=== PATIENT | male | born 1955 | race Caucasian/White ===

== ENCOUNTER 2022-01-09 16:19 | Observation (INO) | payer MEDICARE ==
[~2022-01-09] VITALS: Ht 172.7 cm; Wt 76.4 kg
[2022-01-09] MEDS ORDERED: ALFUZOSIN HCL E10 MG PO (17:40)
[2022-01-09] MEDS ORDERED: BENZONATATE200 MG PO (17:41)
[2022-01-09] MEDS ORDERED: BUPROPION150 M3 PO (17:42)
[2022-01-09] MEDS ORDERED: ESCITALOPRAM OX10 MG PO (17:43)
[2022-01-09] MEDS ORDERED: FAMOTIDINE20 M3 PO (17:44)
[2022-01-09 17:46] LABS: HEMATOCRIT 41.9 % (39.0-50.0); HEMOGLOBIN 13.7 g/dl (14.0-18.0); IMMATURE GRANULOCYTES 0.3 % (0.0-5.0); MEAN CORPUSCULAR HGB 29.1 pG CALC (26.0-32.0); MEAN CORPUSCULAR HGB CONC 32.7 g/dL CAL (32.0-36.0); NEUT# 8.82 thou/uL (1.82-7.42); RED BLOOD COUNT 4.71 mill/uL (4.70-6.10); RED CELL DISTRI WIDTH 12.9 % (11.5-15.5)
[2022-01-09] MEDS ORDERED: FARXIGA10 MG PO ×2 (17:46→21:37)
[2022-01-09] MEDS ORDERED: FINASTERIDE5 MG PO (17:47)
[2022-01-09] MEDS ORDERED: HYDROXYZ HCL25 MG PO (17:48)
[2022-01-09] MEDS ORDERED: INSULIN LI100 UNIT/1 (17:49)
[2022-01-09] MEDS ORDERED: LEVOCETIRIZINE D5 MG PO (17:51)
[2022-01-09] MEDS ORDERED: LISINOPRIL30 MG PO (17:52)
[2022-01-09] MEDS ORDERED: METOPROLOL100 M1 PO (17:53)
[2022-01-09] MEDS ORDERED: METFORMIN HCL500 M1 PO (17:53)
[2022-01-09] MEDS ORDERED: ROSUVASTATIN CA20 MG PO (17:54)
[2022-01-09] MEDS ORDERED: TOUJEO MAX300 UNIT/M SC (17:55)
[2022-01-09 17:56] LABS: ALBUMIN 4.2 g/dL (3.2-5.0); BILIRUBIN, TOTAL 0.6 mg/dL (0.0-1.4); CREATININE 1.6 mg/dL (0.7-1.3); POTASSIUM 4.9 mmol/l (3.5-5.1); TOTAL PROTEIN 7.2 g/dL (6.3-8.2)
[2022-01-09 19:11] LABS: URINE BILIRUBIN - DIPSTICK NEGATIVE (NEGATIVE); URINE BLOOD DIPSTICK TRACE-INTACT (NEGATIVE); URINE COLOR YELLOW; URINE GLUCOSE - DIPSTICK NEGATIVE (NEGATIVE); URINE KETONE NEGATIVE (NEGATIVE); URINE LEUK ESTERASE TRACE (NEGATIVE); URINE PROTEIN - DIPSTICK TRACE mg/dL (NEG-TRACE); URINE SPECIFIC GRAVITY 1.025; URINE UROBILINOGEN - DIPSTICK 0.2 E.U./dL (0.2)
[2022-01-09 19:13] LABS: URINE NITRITE - DIPSTICK POSITIVE (Negative)
[2022-01-09 19:35] LABS: URINE BACTERIA RARE hpf
[2022-01-09] MEDS ORDERED: TRULICITY0.75 MG/0. SC (21:37)
[2022-01-10 04:20] VITALS: BP 91/39
[2022-01-10 04:21] VITALS: BP 92/50
[2022-01-10 06:06] VITALS: BP 135/65
[2022-01-10 16:01] VITALS: BP 139/65
[2022-01-10] MEDS ORDERED: CIPROFLOXACN500 MG PO (17:29)
== END 2022-01-10 17:56 | disposition home or self-care (01) ==
LOC: ED 16:19 → MS2 20:36
PROVIDERS: Family Medicine; ADMIT Internal Medicine; ATTEND Internal Medicine
DX: N39.0 Urinary tract infection, site not specified (principal); N17.9 Acute kidney failure, unspecified; N40.1 Benign prostatic hyperplasia with lower urinary tract symptoms; R33.8 Other retention of urine; N32.89 Other specified disorders of bladder; I10 Essential (primary) hypertension; E11.9 Type 2 diabetes mellitus without complications; B96.1 Klebsiella pneumoniae [K. pneumoniae] as the cause of diseases classified elsewhere; Z79.84 Long term (current) use of oral hypoglycemic drugs; Z79.4 Long term (current) use of insulin; Z20.822 Contact with and (suspected) exposure to COVID-19

== ENCOUNTER 2022-06-01 11:30 | Emergency (ER) | payer MEDICARE ==
[2022-06-01] VITALS (13 sets, daily range): BP systolic 127–173; BP diastolic 77–105
[~2022-06-01] VITALS: Ht 172.7 cm; Wt 86.4 kg
[~2022-06-01 11:30] MED LIST: ALFUZOSIN HCL E10 MG PO; BENZONATATE200 MG PO; BUPROPION150 M3 PO; CIPROFLOXACN500 MG PO; ESCITALOPRAM OX10 MG PO; FAMOTIDINE20 M3 PO; FARXIGA10 MG PO; FINASTERIDE5 MG PO; HYDROXYZ HCL25 MG PO; INSULIN LI100 UNIT/1; LEVOCETIRIZINE D5 MG PO; LISINOPRIL30 MG PO; METFORMIN HCL500 M1 PO; METOPROLOL100 M1 PO; ROSUVASTATIN CA20 MG PO; TOUJEO MAX300 UNIT/M SC; TRULICITY0.75 MG/0. SC
[2022-06-01 12:24] LABS: BASO% 0.1 % (0-3); EOS% 3.6 % (0-8); HEMATOCRIT 40.8 % (39.0-50.0); HEMOGLOBIN 13.3 g/dl (14.0-18.0); IMMATURE GRANULOCYTES 0.3 % (0.0-5.0); LYMPH% 21.3 % (15-41); MEAN CELL VOLUME 85.4 fL CALC (80.0-100.0); MEAN CORPUSCULAR HGB 27.8 pG CALC (26.0-32.0); MEAN CORPUSCULAR HGB CONC 32.6 g/dL CAL (32.0-36.0); MONO% 9.8 % (2-13); NEUT# 4.44 thou/uL (1.82-7.42); NEUT% 64.9 % (42-76); RED BLOOD COUNT 4.78 mill/uL (4.70-6.10); RED CELL DISTRI WIDTH 12.9 % (11.5-15.5)
[2022-06-01 12:33] LABS: ALBUMIN 4.2 g/dL (3.2-5.0); BILIRUBIN, TOTAL 0.5 mg/dL (0.2-1.3); CREATININE 1.5 mg/dL (0.7-1.3); POTASSIUM 4.3 mmol/l (3.5-5.1); TOTAL PROTEIN 7.3 g/dL (6.3-8.2)
[2022-06-01] MEDS ORDERED: PREDNISONE50 MG PO (14:04)
[2022-06-01] MEDS ORDERED: CHERATUSSIN PO (14:04)
== END 2022-06-01 14:32 | disposition home or self-care (01) ==
LOC: ED 11:30
PROVIDERS: Family Medicine
DX: L29.9 Pruritus, unspecified (principal); R60.0 Localized edema; U07.1 COVID-19; Z79.4 Long term (current) use of insulin; I10 Essential (primary) hypertension; E11.9 Type 2 diabetes mellitus without complications; Z79.84 Long term (current) use of oral hypoglycemic drugs; R05.9 Cough, unspecified

== ENCOUNTER 2023-05-11 14:13 | Emergency (ER) | payer MEDICARE ==
[~2023-05-11] VITALS: Ht 172.7 cm; Wt 87.0 kg
[2023-05-11] VITALS (10 sets, daily range): BP systolic 126–160; BP diastolic 70–95
[~2023-05-11 14:13] MED LIST changes: +CHERATUSSIN PO; +PREDNISONE50 MG PO
[2023-05-11] MEDS ORDERED: KETOROLAC TROMETHAMINE 15 MG/ML SDV IV ONE (16:05)
[2023-05-11] MEDS ORDERED: DEXAMETHASONE SODIUM PHOSPHATE 4 MG/VIAL SDV IV ONE (16:05)
[2023-05-11 16:31] LABS: BASO% 0.1 % (0-3); HEMATOCRIT 42.6 % (39.0-50.0); HEMOGLOBIN 14.1 g/dl (14.0-18.0); IMMATURE GRANULOCYTES 0.3 % (0.0-5.0); LYMPH% 21.3 % (15-41); MEAN CELL VOLUME 85.9 fL CALC (80.0-100.0); MEAN CORPUSCULAR HGB 28.4 pG CALC (26.0-32.0); MEAN CORPUSCULAR HGB CONC 33.1 g/dL CAL (32.0-36.0); NEUT# 4.38 thou/uL (1.82-7.42); NEUT% 61.3 % (42-76); RED BLOOD COUNT 4.96 mill/uL (4.70-6.10); RED CELL DISTRI WIDTH 12.4 % (11.5-15.5)
[2023-05-11 16:41] LABS: URINE BILIRUBIN - DIPSTICK Negative (NEGATIVE); URINE BLOOD DIPSTICK Small (NEGATIVE); URINE GLUCOSE - DIPSTICK >=1000 mg/dL (NEGATIVE); URINE KETONE Negative (NEGATIVE); URINE NITRITE - DIPSTICK Negative (Negative); URINE PH 5.5 (4.5-8.0); URINE PROTEIN - DIPSTICK Negative (NEG-TRACE); URINE SPECIFIC GRAVITY <=1.005; URINE UROBILINOGEN - DIPSTICK 0.2 E.U./dL (0.2)
[2023-05-11 16:43] LABS: URINE COLOR Yellow; URINE LEUK ESTERASE Small (NEGATIVE)
[2023-05-11 17:00] LABS: URINE BACTERIA FEW hpf
[2023-05-11 17:13] LABS: ALBUMIN 4.3 g/dL (3.2-5.0); BILIRUBIN, TOTAL 0.4 mg/dL (0.2-1.3); CREATININE 1.7 mg/dL (0.7-1.3); POTASSIUM 4.5 mmol/l (3.5-5.1); TOTAL PROTEIN 7.6 g/dL (6.3-8.2)
[2023-05-11] MEDS ORDERED: SODIUM CHLORIDE 0.9% 1,000 ML IV ONE (17:20)
[2023-05-11] MEDS ORDERED: INSULIN REGULAR (HUMAN) 100 UNIT/ML INJ IV ONE (17:30)
[2023-05-11] MEDS ORDERED: DOXYCYCLINE HYCLATE 100 MG/CAP PO ONE (17:35)
[2023-05-11] MEDS ORDERED: DOXYCYC MONO100 M3 PO (18:23)
== END 2023-05-11 18:48 | disposition home or self-care (01) ==
LOC: ED 14:13
PROVIDERS: Emergency Medicine; Nurse Practitioner
DX: E11.42 Type 2 diabetes mellitus with diabetic polyneuropathy (principal); E11.65 Type 2 diabetes mellitus with hyperglycemia; N39.0 Urinary tract infection, site not specified; B95.7 Other staphylococcus as the cause of diseases classified elsewhere; I12.9 Hypertensive chronic kidney disease with stage 1 through stage 4 chronic kidney disease, or unspecified chronic kidney disease; E11.22 Type 2 diabetes mellitus with diabetic chronic kidney disease; N18.9 Chronic kidney disease, unspecified; Z79.4 Long term (current) use of insulin; Z79.84 Long term (current) use of oral hypoglycemic drugs; Z79.85 Long-term (current) use of injectable non-insulin antidiabetic drugs

== ENCOUNTER 2023-11-26 15:33 | Emergency (ER) | payer MEDICARE ==
[~2023-11-26] VITALS: Ht 170.2 cm; Wt 86.0 kg
[2023-11-26] VITALS (18 sets, daily range): BP systolic 129–162; BP diastolic 51–95
[~2023-11-26 15:33] MED LIST changes: +BACTRIM DS1 TAB PO; +DOXYCYC MONO100 M3 PO; +LAMISIL AT1 % EX; +LOTRISONE CREAM15 G1 EX; +PAXLOVID PO
[2023-11-26] MEDS ORDERED: SODIUM CHLORIDE 0.9% 1,000 ML IV ONE ×2 (15:40→17:15)
[2023-11-26 15:56] LABS: BASO% 0.1 % (0-3); HEMATOCRIT 41.1 % (39.0-50.0); HEMOGLOBIN 13.6 g/dl (14.0-18.0); IMMATURE GRANULOCYTES 0.3 % (0.0-5.0); LYMPH% 23.2 % (15-41); MEAN CELL VOLUME 85.8 fL CALC (80.0-100.0); MEAN CORPUSCULAR HGB 28.4 pG CALC (26.0-32.0); MEAN CORPUSCULAR HGB CONC 33.1 g/dL CAL (32.0-36.0); MONO% 8.1 % (2-13); NEUT# 4.92 thou/uL (1.82-7.42); NEUT% 63.3 % (42-76); PLATELET COUNT 227 thou/uL (130-400); RED BLOOD COUNT 4.79 mill/uL (4.70-6.10); RED CELL DISTRI WIDTH 12.4 % (11.5-15.5)
[2023-11-26 16:07] LABS: CREATININE 1.5 mg/dL (0.7-1.3); TOTAL PROTEIN 7.2 g/dL (6.3-8.2)
[2023-11-26] MEDS ORDERED: METHOCARBAMOL 1,000 MG/10 ML VIAL IV ONE (16:10)
[2023-11-26 16:18] LABS: ALBUMIN 4.4 g/dL (3.2-5.0); BILIRUBIN, TOTAL 0.6 mg/dL (0.2-1.3); POTASSIUM 5.7 mmol/l (3.5-5.1)
[2023-11-26 16:54] LABS: URINE BILIRUBIN - DIPSTICK Negative (NEGATIVE); URINE BLOOD DIPSTICK Negative (NEGATIVE); URINE GLUCOSE - DIPSTICK >=1000 mg/dL (NEGATIVE); URINE KETONE Negative (NEGATIVE); URINE LEUK ESTERASE Negative (NEGATIVE); URINE NITRITE - DIPSTICK Negative (Negative); URINE PH 6.5 (4.5-8.0); URINE PROTEIN - DIPSTICK Negative (NEG-TRACE); URINE SPECIFIC GRAVITY 1.015; URINE UROBILINOGEN - DIPSTICK 0.2 E.U./dL (0.2)
[2023-11-26 17:10] LABS: URINE COLOR Yellow
[2023-11-26] MEDS ORDERED: INSULIN REGULAR (HUMAN) 100 UNIT/ML INJ IV ONE (17:15)
[2023-11-26] MEDS ORDERED: LANTUS SOL100 UNIT/M SC (19:50)
[2023-11-26] MEDS ORDERED: HUMALOG KW200 UNIT/M SC (19:50)
[2023-11-26 19:52] LABS: CREATININE 1.4 mg/dL (0.7-1.3); POTASSIUM 4.4 mmol/l (3.5-5.1)
== END 2023-11-26 20:16 | disposition home or self-care (01) ==
LOC: ED 15:33
PROVIDERS: Nurse Practitioner
DX: E11.65 Type 2 diabetes mellitus with hyperglycemia (principal); I10 Essential (primary) hypertension; E11.40 Type 2 diabetes mellitus with diabetic neuropathy, unspecified; Z79.84 Long term (current) use of oral hypoglycemic drugs; Z79.4 Long term (current) use of insulin; Z79.85 Long-term (current) use of injectable non-insulin antidiabetic drugs; Z91.148 Patient's other noncompliance with medication regimen for other reason

== ENCOUNTER 2024-05-11 16:40 | Emergency (ER) | payer MEDICARE ==
[~2024-05-11] VITALS: Ht 170.2 cm; Wt 68.0 kg
[~2024-05-11 16:40] MED LIST changes: +HUMALOG KW200 UNIT/M SC; +LANTUS SOL100 UNIT/M SC
[2024-05-11] MEDS ORDERED: CLOPIDOGREL75 MG PO (17:05)
[2024-05-11 18:02] LABS: URINE BILIRUBIN - DIPSTICK Negative (NEGATIVE); URINE BLOOD DIPSTICK Small (NEGATIVE); URINE COLOR Yellow; URINE GLUCOSE - DIPSTICK 500 mg/dL (NEGATIVE); URINE KETONE Negative (NEGATIVE); URINE LEUK ESTERASE Trace (NEGATIVE); URINE NITRITE - DIPSTICK Negative (Negative); URINE PROTEIN - DIPSTICK 100 mg/dL (NEG-TRACE); URINE UROBILINOGEN - DIPSTICK 0.2 E.U./dL (0.2)
[2024-05-11 18:12] LABS: URINE BACTERIA FEW hpf; URINE SQUAMOUS EPITHELIAL CELL FEW EPI/hpf (0-FEW)
[2024-05-11 18:20] VITALS: BP 122/77
[2024-05-11] MEDS ORDERED: SULFAMETHOXAZOLE W/TRIMETHOPRI 1 COMBO TAB PO ONE (18:20)
== END 2024-05-11 18:32 | disposition home or self-care (01) ==
LOC: ED 16:40
PROVIDERS: Family Medicine
DX: N39.0 Urinary tract infection, site not specified (principal); I10 Essential (primary) hypertension; E11.40 Type 2 diabetes mellitus with diabetic neuropathy, unspecified; Z79.84 Long term (current) use of oral hypoglycemic drugs; Z79.4 Long term (current) use of insulin